=== PATIENT | male | born 1990 | race African-American/Black ===

== ENCOUNTER 2021-03-13 18:50 | Emergency (ER) | payer OTHER, SELFPAY ==
[2021-03-13 19:02] VITALS: BP 176/108; PULSE 116; RESP 20; TEMP 36.6; O2SAT 96
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
[2021-03-13 21:27] VITALS: BP 158/98; PULSE 108; RESP 14; O2SAT 98
== END 2021-03-13 21:29 | disposition home or self-care (01) ==
PROVIDERS: Emergency Provider Nurse Practitioner
DX: S05.01XA Injury of conjunctiva and corneal abrasion without foreign body, right eye, initial encounter (principal); X58.XXXA Exposure to other specified factors, initial encounter
CPT/HCPCS: 99282

== ENCOUNTER 2025-05-02 16:37 | Emergency (ER) | payer OTHER, SELFPAY ==
--- NOTE | ~2025-05-02 | US_ITS ---
BILATERAL LOWER EXTREMITY VENOUS ULTRASOUND Ordering provider: Krissy Steen PA-C History: . pain thighs, swelling L lower leg . Comparison: None. FINDINGS: RIGHT LOWER EXTREMITY VEINS: --COMMON FEMORAL: Patent and free of thrombus. Normal compressibility, phasic flow and augmentation. --PROXIMAL SUPERFICIAL FEMORAL: Patent and free of thrombus. Normal compressibility, phasic flow and augmentation. --DISTAL SUPERFICIAL FEMORAL: Patent and free of thrombus. Normal compressibility, phasic flow and au gmentation. --POPLITEAL: Patent and free of thrombus. Normal compressibility, phasic flow and augmentation. --POSTERIOR TIBIAL: Patent and free of thrombus. Normal compressibility, phasic flow and augmentation . LEFT LOWER EXTREMITY VEINS: --COMMON FEMORAL: Patent and free of thrombus. Normal compressibility, phasic flow and augmentation. --PROXIMAL SUPERFICIAL FEMORAL: Patent and free of thrombus. Normal compressibility, phasic flow and augmentation. --DISTAL SUPERFICIAL FEMORAL: Patent and free of thrombus. Normal compressibility, phasic flow and au gmentation. --POPLITEAL: Patent and free of thrombus. Normal compressibility, phasic flow and augmentation. --POSTERIOR TIBIAL: Patent and free of thrombus. Normal compressibility, phasic flow and augmentation . IMPRESSION: Negative bilateral lower extremity venous US. No deep vein thrombosis. Reviewed, dictated and finalized at location A.
[2025-05-02 16:38] VITALS: BP 147/93; PULSE 110; RESP 16; TEMP 36.8; O2SAT 98
--- OUTSIDE RECORDS SUMMARY | 2025-05-02 16:39 | XMS_ITS | Encounter Summary ---
Author Organization [facility] Healthcare Address [address] [place] [address] Care Team Providers Care Chief Administrative Officer Name Role Phone Miscellaneous, Not In File Unavailable Unava ilable Becka Dinh NP Primary Care Provider [phone] Encounter Details Date Type Department Care Team (Latest Contact Info) Description 03/31/2025 Results Follow-Up [facility] Primary Care at [address] [id number] Becka Dinh NP [address] [place] [address] [address] [place] [address] Albumin Creatinine Ratio, Urine, Lipid panel, Comprehensive metabolic panel, Additional followed-up results: 8 Social History Tobacco Use Types Packs/Day Years Used Date Smoking Tobacco: Former Cigarettes 3 13 S tarted: 2003 Passive Smoke Exposure: Past Smokeless Tobacco: Never AUDIT-C Answer Date Recorded Q1: How often do you have a drink containing alc ohol? 2-4 times a month 02/28/2025 Q2: How many drinks containi ng alcohol do you have on a typical day when you are drinking? 1 or 2 02/28/2025 Q3: How often do you have si x or more drinks on one occasion? Never 02/28/2025 PHQ-2 Answer Date Recorded PHQ-2 Total Score (If total score is 3 or more points, staff should administer the PHQ-9) 4 02/28/2025 PHQ-9 Answer Date Recorded PHQ-9 Total Score 18 02/28/2025 Sex and Gender Information Value Date Recorded Sex Assigned at Not on file Legal Sex Male 9:06 AM [employer] Gender Identity Not on file Sexual Orientation Not on file documented as of this encounter Miscellaneous Notes * Telephone Encounter - Lana Reese MA - 04/05/2025 1:32 PM CDT Pa has been started documented in this encounter Plan of Treatment Not on file documented as of this encounter Visit Diagnoses Not on filedocumented in this encounter Care Teams Chief Administrative Officer Relationship Specialty Start Date End Date Becka Dinh NP [address] [facility] [address] [place] [address] PCP - General Internal Medicine 02/28/25 Miscellaneous, Not In File 03/23/17 documented as of this encounter
--- OUTSIDE RECORDS SUMMARY | 2025-05-02 16:40 | XMS_ITS | Referral Summary ---
Author Organization [facility] Address [address] [place] [id number] Care Team Providers Care Coal Screener Name Role Phone Miscellaneous, Not In File Unavailable Unava ilable Becka Dinh NP Primary Care Provider [phone] Encounters Date Type Department Care Team Description 04/27/2025 Nurse Triage [facility] Medical [facility] Primary Care at [address] [phone] Bessie Guaman RN 04/07/2025 Telephone [facility] Medical [facility] Primary Care at [address] [phone] Becka Dinh NP Med Refill 04/05/2025 Telephone [facility] Medical [facility] Primary Care at [address] [phone] Becka Dinh NP PA for Ozempic 03/31/2025 Results Follow-Up [facility] Medical [facility] Primary Care at [address] [phone] Becka Dinh NP Albumin Creatinine Ratio, Urine, Lipid panel, Comprehensive metabolic panel, Additional followed-up results: 8 03/28/2025 10:36 AM CDT - 03/28/2025 11:59 PM CDT Hospital Encounter [facility] [address] [place] [address] Type 2 diabetes mellitus with hyperlipidemia (HCC); Mixed hyperlipidemia; Hypertension associated with diabetes (HCC); Vitamin D deficiency; Need for hepatitis C screening test; Need for hepatitis B screening test; History of anemia Discharge Disposition: Discharge to home or self care 03/28/2025 10:30 AM CDT Lab [facility] Outpatient Lab at [address] [phone] Morbid obesity with BMI of 45.0-49.9, adult (HCC) (Primary Dx); Mixed hyperlipidemia 03/28/2025 10:00 AM CDT Office Visit [facility] Primary Care at [address] [phone] Becka Dinh NP Morbid obesity with BMI of 40.0-44.9, adult (HCC) (Primary Dx); Type 2 diabetes mellitus with hyperlipidemia (HCC); Moderate episode of recurrent major depressive disorder (HCC); Hypertension associated with diabetes (HCC); Vitamin D deficiency; Mild intermittent asthma without complication 03/01/2025 Telephone [facility] Primary Care at [address] [phone] Becka Dinh NP Prior Auth (mounjaro) 02/28/2025 Telephone [facility] Primary Care at [address] [phone] Becka Dinh NP Med Refill 02/28/2025 2:00 PM CDT Office Visit [facility] Primary Care at [address] [phone] Becka Dinh NP Morbid obesity with BMI of 45.0-49.9, adult (HCC) (Primary Dx); Vitamin D deficiency; Mild intermittent asthma without complication; Mixed hyperlipidemia; Need for hepatitis C screening test; Need for hepatitis B screening test; History of anemia; Moderate episode of recurrent major depressive disorder (HCC); Hypertension associated with diabetes (HCC); Type 2 diabetes mellitus with hyperlipidemia (HCC); Chronic pain due to trauma from Last 3 Months Allergies No known active allergies Medications amLODIPine (NORVASC) 5 mg tabletIndications :Hypertension associated with diabetes (HCC) Take 1 tablet (5 mg total) by mouth daily 90 tablet 3 02/29/20 25 2025 Active ergocalciferol (VITAMIN D) 50,000 unit capsuleIndication s:Vitamin D deficiency Take 1 capsule (50,000 Units total) by mouth once a week 12 capsule 02/29/20 25 Active albuterol HFA (Ventolin HFA) 90 mcg/actuation inhalerIndication s:Mild intermittent asthma without complication Inhale 2 puffs every 8 (eight) hours as needed for wheezing 3 each 02/29/20 25 Active budesonide-formot Marc (SYMBICORT) 160-4.5 mcg/actuation inhalerIndication s:Maintenance Therapy for Asthma Inhale 2 puffs 2 (two) times a day Rinse mouth with water after use. Do not swallow. 1 each 02/29/20 25 Active blood glucose diagnostic (glucose blood) stripIndications: Type 2 diabetes mellitus with hyperlipidemia (HCC) Use to check blood sugar 3x per day 100 each 02/29/20 25 Active lancets miscIndications:T ype 2 diabetes mellitus with hyperlipidemia (HCC) Use to check blood sugar 3x per day 100 each 02/29/20 25 Active blood-glucose meter miscIndications:T ype 2 diabetes mellitus with hyperlipidemia (HCC) Use daily or as directed for monitoring of diabetes. 1 each 02/29/20 25 Active metFORMIN XR (GLUCOPHAGE XR) 500 mg 24 hr tabletIndications :Type 2 diabetes mellitus with hyperlipidemia (HCC) Take 2 tablets (1,000 mg total) by mouth 2 (two) times a day 180 tablet 03/28/20 25 Active sertraline (ZOLOFT) 50 mg tabletIndications :Moderate episode of recurrent major depressive disorder (HCC) Take 1 tablet (50 mg total) by mouth daily 90 tablet 03/28/202025 Active rosuvastatin (CRESTOR) 10 mg tabletIndications :Type 2 diabetes mellitus with hyperlipidemia (HCC) Take 1 tablet (10 mg total) by mouth daily 90 tablet 03/28/202025 Active semaglutide (OZEMPIC) 0.25 mg or 0.5 mg (2 mg/3 mL) pen injector injectionIndicati ons:Type 2 diabetes mellitus with hyperlipidemia (HCC) Inject 0.5 mg under the skin every 7 days 3 mL 1 04/07/20 25 Active semaglutide (OZEMPIC) 0.25 mg or 0.5 mg (2 mg/3 mL) pen injector injectionIndicati ons:Type 2 diabetes mellitus with hyperlipidemia (HCC) Inject 0.5 mg under the skin every 7 days 2 mL 1 03/28/20 25 2024 Discontinued Active Problems Problem Noted Date Diagnosed Date Chronic pain due to trauma 03/02/2025 Assessment & Plan (03/02/2025 7:51 AM CDT): Vitamin D deficiency 02/28/2025 Assessment & Plan (03/02/2025 7:51 AM CDT): We will check vitamin-D levels. Going ahead and starting patient on vitamin-D 50,000 given previous extremely low level and no follow up treatment. Orders: ergocalciferol (VITAMIN D) 50,000 unit capsule; Take 1 capsule (50,000 Units total) by mouth once a week Vitamin D 25 hydroxy; Future History of anemia 02/28/2025 Assessment & Plan (03/02/2025 7:51 AM CDT): History of anemia. CBC and iron profile pending. Orders: Iron profile w/ IBC; Future CBC with auto differential; Future Hypertension associated with diabetes 02/28/2025 Assessment & Plan (03/28/2025 12:29 PM CDT): Assessment & Plan (03/02/2025 7:51 AM CDT): Orders: amLODIPine (NORVASC) 5 mg tablet; Take 1 tablet (5 mg total) by mouth daily Albumin Creatinine Ratio, Urine; Future Hemoglobin A1c; Future Comprehensive metabolic panel; Future Mild intellectual disabilities 02/28/2025 Type 2 diabetes mellitus with hyperlipidemia 11/2024 Assessment & Plan (03/28/2025 12:29 PM CDT): Orders: metFORMIN XR (GLUCOPHAGE XR) 500 mg 24 hr tablet; Take 2 tablets (1,000 mg total) by mouth 2 (two) times a day rosuvastatin (CRESTOR) 10 mg tablet; Take 1 tablet (10 mg total) by mouth daily Albumin Creatinine Ratio, Urine; Future Assessment & Plan (03/02/2025 7:51 AM CDT): Orders: metFORMIN XR (GLUCOPHAGE XR) 500 mg 24 hr tablet; Take 2 tablets (1,000 mg total) by mouth daily with breakfast tirzepatide (Mounjaro) 2.5 mg/0.5 mL pen injector injection; Inject 0.5 mL (2.5 mg total) under the skin every 7 days Ambulatory referral to [facility] Education [facility] Nutrition Services; Future blood glucose diagnostic (glucose blood) strip; Use to check blood sugar 3x per day lancets misc; Use to check blood sugar 3x per day blood-glucose meter misc; Use daily or as directed for monitoring of diabetes. POCT hemoglobin A1c Morbid obesity with BMI of 45.0-49.9, adult 11/2024 Assessment & Plan (03/02/2025 7:51 AM CDT): Discussed the patient's BMI. The BMI is above average. BMI management plan is completed. BMI Follow-up includes: nutrition counseling, exercise counseling and education provided. Mixed hyperlipidemia 02/28/2025 Assessment & Plan (03/02/2025 7:51 AM CDT): History of elevated cholesterol levels. We will screen and likely start statin next visit. 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 Do not swallow. 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 Gender Identity Not on file Sexual Orientation Not on file Last Filed Vital Signs Vital Sign Reading Time Taken Comments Blood Pressure 118/84 03/28/2025 10:08 AM CDT Pulse 102 03/28/2025 10:08 AM CDT Temperature 36.8 C (98.2 F) 03/28/2025 10:08 AM CDT Respiratory Rate 16 03/28/2025 10:08 AM CDT Oxygen Saturation 97% 03/28/2025 10:08 AM CDT Inhaled Oxygen Concentration - - Weight 129.3 kg (285 lb) 03/28/2025 10:08 AM CDT Height 170.2 cm (5' 7) 03/28/2025 10:08 AM CDT Body Mass Index 44.64 03/28/2025 10:08 AM CDT Plan of Treatment Not on file Procedures Procedure Name Priority Date/Time Associated Diagnosis Comments EGFR Routine 03/28/2025 10:36 AM CDT Hypertension associated with diabetes (HCC) DIFFERENTIAL AUTO Routine 03/28/2025 10: 36 AM CDT History of anemia IRON PROFILE W/ IBC Routine 03/28/2025 1 0:36 AM CDT History of anemia CBC WITH AUTO DIFFERENTIAL Routine 03/28/2025 10:36 AM CDT History of anemia VITAMIN D 25 HYDROXY Routine 03/28/2025 10:36 AM CDT Vitamin D deficiency HEMOGLOBIN A1C Routine 03/28/2025 10:36 AM CDT Hypertension associated with diabetes (HCC) COMPREHENSIVE METABOLIC PANEL Routine 03/28/2025 10:36 AM CDT Hypertension associated with diabetes (HCC) LIPID PANEL Routine 03/28/2025 10:36 AM CDT Mixed hyperlipidemia ALBUMIN CREATININE RATIO, URINE Routine 03/28/2025 10:36 AM CDT Type 2 diabetes mellitus with hyperlipidemia (HCC) HEPATITIS B SURFACE ANTIGEN Routine 03/28/2025 10:36 AM CDT Need for hepatitis B screening test HEPATITIS C ANTIBODY Routine 03/28/2025 10:36 AM CDT Need for hepatitis C screening test POCT HEMOGLOBIN A1C Routine 02/28/2025 3 :13 PM CDT Type 2 diabetes mellitus with hyperlipidemia (HCC) from Last 3 Months Results * eGFR (03/28/2025 10:36 AM CDT) eGFR >90 >=60 mL/min/1. 73 m2 Comment: Interpretive Data Reference Interval Normal >/= 90 mL/min/1.73m2 Mildly decreased* 60 - 89 mL/min/1.73m2 Mildly to moderately decreased 45 - 59 mL/min/1.73m2 Moderately to severely decreased 30 - 44 mL/min/1.73m2 Severely decreased 15 - 29 mL/min/1.73m2 Kidney Failure < 15 mL/min/1.73m2 *Relative to young adult level Estimated glomerular filtration rate is determined by the 2020 CKD-EPI equation recommended by the National Kidney Foundation (A Unifying Approach to GFR Estimation: Recommendations of the NKF-ASK Task Force on Reassessing the Inclusion of Race in Diagnosing Kidney Disease, JASN 2020). The CKD-EPI equation should not be used for patients with unstable renal function and has not been validated in children and those over 70. Current interpretive data was last reviewed 2021. Blood 03/28/2025 10:3 6 AM CDT 03/28/2025 3:53 PM CDT Becka Dinh MACHINE ENGINEER LAB BLOOD ORDERABLES Final Re sult [facility] [id number] [address] Department of Laboratories [place] [phone] * Differential, auto (03/28/2025 10:36 AM CDT) Neutrophil abs 2.91 1.50 - 6.50 K/cumm Imm gran abs 0.01 0.00 - 0.10 K/cumm [facility] Lymphocyte abs 1.62 0.80 - 3.30 K/cumm [facility] Monocyte abs 0.39 0.20 - 0.80 K/cumm [facility] Eosinophil abs 0.19 0.00 - 0.50 K/cumm [facility] Basophil abs 0.02 0.00 - 0.10 K/cumm [facility] Neutrophil pct 56.6 % [facility]ISE Comment: Interpretive Data Percent cell count reference ranges are not reported, since discordance with absolute values may lead to misinterpretation of CBC data. Current Interpretive Data was last revised on 2018. Imm gran pct 0.2 % [facility]ISE Comment: Interpretive Data Percent cell count reference ranges are not reported, since discordance with absolute values may lead to misinterpretation of CBC data. Current Interpretive Data was last revised on 2018. Lymphocyte pct 31.5 % [facility] Comment: Interpretive Data Percent cell count reference ranges are not reported, since discordance with absolute values may lead to misinterpretation of CBC data. Current Interpretive Data was last revised on 2018. Monocyte pct 7.6 % [facility] Comment: Interpretive Data Percent cell count reference ranges are not reported, since discordance with absolute values may lead to misinterpretation of CBC data. Current Interpretive Data was last revised on 2018. Eosinophil pct 3.7 % [facility] Comment: Interpretive Data Percent cell count reference ranges are not reported, since discordance with absolute values may lead to misinterpretation of CBC data. Current Interpretive Data was last revised on 2018. Basophil pct 0.4 % [facility] Comment: Interpretive Data Percent cell count reference ranges are not reported, since discordance with absolute values may lead to misinterpretation of CBC data. Current Interpretive Data was last revised on 2018. Blood 03/28/2025 10:3 6 AM CDT 03/28/2025 3:46 PM CDT Becka Dinh MACHINE ENGINEER LAB BLOOD ORDERABLES Final Re sult Performing Organization Address [facility] Co de Phone Number JUSTINTRI BAÑUELOS [phone] [place] [address] * (ABNORMAL) Iron profile w/ IBC (03/28/2025 10:36 AM CDT) Iron 60 50 - 150 mcg/dl TIBC 248(L) 250 - 400 mcg/dL [facility] Transferrin saturation 24 20 - 50 % [facility] Blood 03/28/2025 10:3 6 AM CDT 03/28/2025 3:46 PM CDT Becka Dinh MACHINE ENGINEER LAB BLOOD ORDERABLES Final Re sult Performing Organization Address City/[facility]/ZIP Co de Phone Number MARQUISE [phone] [address] [place] [address] * (ABNORMAL) CBC with auto differential (03/28/2025 10:36 AM CDT) [facility] WBC 5.14 3.80 - 9.90 K/cumm Hgb 14.0 13.0 - 17.5 g/dL [facility] Hct 46.2 38.9 - 50.3 % [facility] Plt 304 150 - 400 K/cumm [facility] MPV 9.6 9.1 - 12.3 fL [facility] RBC 6.11(H) 4.30 - 5.80 M/cumm [facility] MCV 75.6(L) 81.3 - 96.4 fL [facility] MCH 22.9(L) 27.1 - 33.3 pg [facility] MCHC 30.3(L) 32.3 - 35.7 g/dL [facility] RDW CV 13.9 11.1 - 14.9 % [facility] RDW SD 37.1 35.7 - 48.1 fL [facility] NRBC abs 0.00 0.00 - 0.01 K/cumm [facility] Blood 03/28/2025 10:3 6 AM CDT 03/28/2025 3:46 PM CDT Becka Dinh MACHINE ENGINEER LAB BLOOD ORDERABLES Final Re sult [facility] [id number] [address] Department [place] [address] * Hepatitis C antibody Blood (03/28/2025 10:36 AM CDT) [facility] Hep C Ab Nonreactive Nonreactive Comment: Interpretive Data Nonreactive: Antibodies to HCV not detected. Does NOT exclude the possibility of recent exposure to HCV. Equivocal: Equivocal for HCV antibodies. Supplemental molecular testing will be automatically performed to determine infection status in accordance with current CDC screening recommendations. Reactive: Positive for HCV antibodies. This may represent current or past HCV infection. Supplemental molecular testing will be automatically performed to determine current infection status in accordance with current CDC screening recommendations. Interpretive data was last revised on 2020. Blood 03/28/2025 10:3 6 AM CDT 03/28/2025 3:46 PM CDT Becka Dinh NP LAB MICROBIOLOGY - GENERAL OR DERABLES Final Result Performing Organization Address [facility] Co de Phone Number MARQUISE BAÑUELOS [phone] [address] [facility] [place] [address] * Albumin Creatinine Ratio, Urine (03/28/2025 10:36 AM CDT) Pathologist [facility] Albumin Ur 15.3 mg/L Comment: Interpretive Data No reference range established. Current interpretive data was last revised 2019. Creatinine Ur 175.9 mg/dL [facility] Comment: Interpretive Data No reference range established. Current interpretive data was last revised 2019. Albumin Creatinine Ratio, Ur 9 1 - 29 mg/g [facility] Urine 03/28/2025 10:3 6 AM CDT 03/28/2025 3:46 PM CDT Becka Dinh NP LAB URINE ORDERABLES Final Re sult Performing Organization Address [facility] Co de Phone Number MARQUISE EDDA [phone] [address] [facility] [place] [address] * (ABNORMAL) Vitamin D 25 hydroxy (03/28/2025 10:36 AM CDT) Pathologist [facility] Vitamin D 25-OH 29(L) 30 - 80 ng/mL Blood 03/28/2025 10:3 6 AM CDT 03/28/2025 3:46 PM CDT Becka Dinh NP LAB BLOOD ORDERABLES Final Re sult Performing Organization Address [facility] Co de Phone Number JUSTINTRI BAÑUELOS [phone] [address] [facility] [place] [address] * Hepatitis B Surface Antigen Blood (03/28/2025 10:36 AM CDT) Pathologist [facility] HepBsAg Nonreactive Nonreactive Blood 03/28/2025 10:3 6 AM CDT 03/28/2025 3:46 PM CDT Becka Dinh NP LAB MICROBIOLOGY - GENERAL OR DERABLES Final Result Performing Organization Address [facility] de Phone Number MARQUISE BAÑUELOS [phone] [address] [facility] [place] [address] * (ABNORMAL) Hemoglobin A1c (03/28/2025 10:36 AM CDT) Hgb A1C 10.6(H) 4.0 - 5.6 % Estimated Average Glucose 258 mg/dL [facility] BAÑUELOS Comment: The ADA recommends reporting an estimated Average Glucose (eAG) with all Hemoglobin A1c results using the equation derived from a study of 507 normal and diabetic adults. Minority populations were underrepresented and children were not included. (Diabetes Care 31:3980-5830, 2008). The eAG is not equivalent to a fasting glucose. Blood 03/28/2025 10:3 6 AM CDT 03/28/2025 3:46 PM CDT Becka Dinh NP LAB BLOOD ORDERABLES Final Re sult Performing Organization Address [facility] de Phone Number MARQUISE BAÑUELOS [phone] [address] [facility] [place] [address] * (ABNORMAL) Lipid panel (03/28/2025 10:36 AM CDT) Cholesterol 229(H) 30 - 199 mg/dL Comment: Interpretive Data Ages < or = 19 years Acceptable: <170 mg/dL Borderline high: 170-199 mg/dL High: >or= 200 mg/dL Ages > or = 20 years Desirable: <200 mg/dL Borderline high: 200-239 mg/dL High: >or= 240 mg/dL Literature References: 1. Expert Panel on Integrated Guidelines for Cardiovascular Health and Risk Reduction in Children and Adolescents. Pediatrics 2011;128:S213 2. NCEP Expert Panel. Circulation 2004;110:227 Current Interpretive Data was last revised on 2018. Triglycerides 60 <=149 mg/dL [facility]QU[facility] BAÑUELOS Comment: Interpretive Data Ages < or = 9 years Acceptable: <75 mg/dL Borderline high: 75-99 mg/dL High: >or= 100 mg/dL Ages 10 to 20 years Acceptable: <90 mg/dL Borderline high: 90-129 mg/dL High: >or= 130 mg/dL Ages > or = 20 years Desirable: <150 mg/dL Borderline high: 150-199 mg/dL High: 200-499 mg/dL Very high: >or= 499 mg/dL Literature References: 1. Expert Panel on Integrated Guidelines for Cardiovascular Health and Risk Reduction in Children and Adolescents. Pediatrics 2011;128:S213 2. NCEP Expert Panel. Circulation 2004;110:227 Current Interpretive Data was last revised on 2018. HDL 37(L) >=40 mg/dL [facility]QU[facility] BAÑUELOS Comment: Interpretive Data Ages < or = 19 years Acceptable: >45 mg/dL Borderline low: 40-45 mg/dL Low: <40 mg/dL Ages > or = 20 years Desirable: >or= 60 mg/dL Low: <40 mg/dL Literature References: 1. Expert Panel on Integrated Guidelines for Cardiovascular Health and Risk Reduction in Children and Adolescents. Pediatrics 2011;128:S213 2. NCEP Expert Panel. Circulation 2004;110:227 Current Interpretive Data was last revised on 2018. LDL, calculated 182(H) <=129 mg/dL [facility] BAÑUELOS Comment: Interpretive Data Ages < or = 19 years Acceptable: <110 mg/dL Borderline high: 110-129 mg/dL High: >or= 130 mg/dL Ages > or = 20 years Optimal: <100 mg/dL Near optimal: 100-129 mg/dL Borderline high: 130-159 mg/dL High: >160 mg/dL Calculated using the Minor LDL-C estimating equation. This equation was implemented on 2024. Prior to this date LDL-C was estimated using the Friedewald equation. Literature References: 1. Expert Panel on Integrated Guidelines for Cardiovascular Health and Risk Reduction in Children and Adolescents. Pediatrics 2011;128:S213 2. NCEP Expert Panel. Circulation 2004;110:227 3. Minor Hardy al. SITA Cardiol. 2019March 30;5(5):540-548. doi: 10.1001/[email or web address] Current Interpretive Data was last revised on 2024. Non-HDL Cholesterol 192 mg/dL [facility] Comment: Interpretive Data Ages < or = 19 years Acceptable: <120 mg/dL Borderline high: 120-144 mg/dL High: >145 mg/dL Ages > or = 20 years When triglycerides are >200 mg/dL, Non-HDL cholesterol is a secondary target of therapy with treatment goals that are 30 mg/dL greater than the LDL cholesterol target. Literature References: 1. Expert Panel on Integrated Guidelines for Cardiovascular Health and Risk Reduction in Children and Adolescents. Pediatrics 2011;128:S213 2. NCEP Expert Panel. Circulation 2004;110:227 Current Interpretive Data was last revised on 2018. Chol/HDL ratio 6 [facility] Blood 03/28/2025 10:3 6 AM CDT 03/28/2025 3:46 PM CDT Becka Dinh NP LAB BLOOD ORDERABLES Final Re sult [facility] [id number] [address] Department [place] [address] * (ABNORMAL) Comprehensive metabolic panel (03/28/2025 10:36 AM CDT) Sodium 138 135 - 145 mmol/L Potassium, pl 4.6 3.3 - 4.9 mmol/L [facility] Chloride 102 97 - 110 mmol/L [facility] CO2 26 22 - 32 mmol/L [facility] Anion gap 10 2 - 15 mmol/L [facility] BUN 18 6 - 25 mg/dL [facility] Creatinine 0.77(L) 0.80 - 1.30 mg/dL [facility] Glucose 157 70 - 199 mg/dL [facility] Comment: Interpretive Data Fasting glucose >/= 126 mg/dl is diagnostic for diabetes. Fasting is defined as no caloric intake for at least 8 hours. Fasting glucose between 100 mg/dl to 125 mg/dl is diagnostic of prediabetes. In a patient with classic symptoms of hyperglycemia or hyperglycemic crisis, a random glucose >/= 200 mg/dl is diagnostic for diabetes. In the absence of unequivocal hyperglycemia, results should be confirmed by repeat testing. The classification and Diagnosis of Diabetes Diabetes Care 2021; 46: S19-S40. Current interpretive data was last revised 2022. Calcium 9.8 8.5 - 10.3 mg/dL [facility] Bilirubin, total 0.5 0.1 - 1.2 mg/dL [facility] Protein, pl 7.7 6.5 - 8.5 g/dL [facility] Albumin 4.3 3.5 - 5.0 g/dL [facility] Alk phos 65 40 - 130 Units/L [facility] ALT 28 7 - 55 Units/L [facility] AST 34 10 - 50 Units/L [facility] Blood 03/28/2025 10:3 6 AM CDT 03/28/2025 3:46 PM CDT Becka Dinh MACHINE ENGINEER LAB BLOOD ORDERABLES Final Re sult [facility] [id number] [address] [place] [address] * (ABNORMAL) POCT hemoglobin A1c (02/28/2025 3:13 PM CDT) Hemoglobin A1C, POC 10.7 4.0 - 5.6 % Blood 02/28/2025 3:13 PM CDT Becka Dinh NP POINT OF CARE TEST ORDERABLES Final Result from Last 3 Months Insurance * Guarantor: [employer] Account Type Relation to Patient Date of Phone Billing Address Personal/Family Self 1990 [address] [place] [address] [facility] CHOICE [facility]US [facility] Care Teams Coal Screener Relationship Specialty Start Date End Date Becka Dinh NP [address] [address] PCP - General Internal Medicine 02/28/25 Miscellaneous, Not In File 03/23/17
--- OUTSIDE RECORDS SUMMARY | 2025-05-02 16:40 | XMS_ITS | CONTINUITY OF CARE DOCUMENT ---
Author Name wendy nguyen Address Unknown Organization [facility] Address [address] [address] [facility] [address] [place] [address] Phone [phone] Care Team Providers Care Sample Preparation Supervisor Name Role Phone Cesario RANDOLPH, Meme Unavailable [phone] ALBERTO POWELL MD Unavailable SHERRY RANDOLPH, ALBERTO Unavailable PROBLEMS Condition Status Date Provider Notes Asthma, unspecified active ALBERTO POWELL MD Tobacco use, quit active ALBERTO POWELL MD Family history of other card iovascular diseases active ALBERTO POWELL MD Unspecified intellectual disabilities active 0 ALBERTO POWELL MD ENCOUNTERS Date Type Provider Location Encounter Diag nosis - In-person encounter Office Visit ALBERTO POWELL MD [place] [facility] - In-person encounter Office Visit Gisela Vázquez [place] [facility] - In-person encounter Office Visit ALBERTO POWELL MD [place] [facility] Asthma, unspecifiedTobacco use, quitFamily history of other cardiovascular diseasesUnspecified intellectual disabilities ALLERGIES No Known Drug Allergies HISTORY OF MEDICATION USE Medication Status Instructions Dates Provider Indications Com ments ASPIRIN 81 MG ORAL TABLET active ONE TAB. DAILY ALBERTO POWELL MD VENTOLIN HFA 108 (90 Base) MCG/ACT INHALATION AEROSOL SOLUTION active TAKE NEEDED ALBERTO POWELL MD INSURANCE PROVIDERS Payer name Policy type / Coverage type [employer] red alliance party ID [place] MEDICAID (2) Medicaid [id number]
--- OUTSIDE RECORDS SUMMARY | 2025-05-02 16:40 | XMS_ITS | Clinical Summary ---
Author Organization [facility] Address [address] [place] [address] Care Team Providers Care Medical Dermatologist Name Role Phone Miscellaneous, Not In File Unavailable Melindava Becka De León NP Primary Care Provider [phone] Allergies No known active allergies Medications amLODIPine (NORVASC) 5 mg tabletIndications :Hypertension associated with diabetes (HCC) Take 1 tablet (5 mg total) by mouth daily 90 tablet 02/29/20 25 2025 Active ergocalciferol (VITAMIN D) [...] 2 (two) times a day 180 tablet 3 03/28/20 25 Active sertraline (ZOLOFT) 50 mg tabletIndications :Moderate episode of recurrent major depressive disorder (HCC) Take 1 tablet (50 mg total) by mouth daily 90 tablet 3 03/28/20 25 2025 Active rosuvastatin (CRESTOR) 10 mg tabletIndications :Type 2 diabetes mellitus with hyperlipidemia (HCC) Take 1 tablet (10 mg total) by mouth daily 90 tablet 3 03/28/20 25 2025 Active semaglutide (OZEMPIC) 0.25 mg or 0.5 [...] Resolved Date Unspecified intellectual disabilities 02/06/2015 02/28/2025 Encounters Date Type Department Care Team Description 04/27/2025 Nurse Triage [facility] Primary Care at [address] [phone] Bessie Guaman RN 04/07/2025 Telephone [facility] Primary Care at [address] [phone] Becka Dinh NP Med Refill 04/05/2025 Telephone [facility] Primary Care at [address] [phone] Becka Dinh NP PA for Ozempic 03/31/2025 Results Follow-Up [facility] Primary Care at [address] [phone] Becka Dinh NP Albumin Creatinine Ratio, Urine, Lipid panel, Comprehensive metabolic panel, Additional followed-up results: 8 03/28/2025 10:36 AM CDT - 03/28/2025 11:59 PM CDT Hospital Encounter [address] [address] Type 2 diabetes mellitus with hyperlipidemia (HCC); Mixed hyperlipidemia; Hypertension associated with diabetes (HCC); Vitamin D deficiency; Need for hepatitis C screening test; Need for hepatitis B screening test; History of anemia Discharge Disposition: Discharge to home or self care 03/28/2025 10:30 AM CDT Lab [facility] Outpatient Lab at [address] [phone] Morbid obesity with BMI of 45.0-49.9, adult (HCC) (Primary Dx); Mixed hyperlipidemia 03/28/2025 10:00 AM CDT Office Visit [facility] Primary Care at [address] [phone] Becka Dinh NP Morbid obesity with BMI of 40.0-44.9, adult (HCC) (Primary Dx); Type 2 diabetes mellitus with hyperlipidemia (HCC); Moderate episode of recurrent major depressive disorder (HCC); Hypertension associated with diabetes (HCC); Vitamin D deficiency; Mild intermittent asthma without complication 03/01/2025 Telephone [facility] Primary Care at [address] [phone] Becka Dinh NP Prior Auth (mounjaro) 02/28/2025 2:00 PM CDT Office Visit [facility] Primary Care at [address] [phone] Becka Dinh NP Morbid obesity [...] hyperlipidemia (HCC); Chronic pain due to trauma 02/28/2025 Telephone [facility] Primary Care at [address] [phone] Becka Dinh NP Med Refill from Last 3 Months Immunizations Immunization Administration Dates Next Due Influenza, Quadrivalent, Split, Intramuscular ,09/27/2015 Pneumococcal Conjugate Pcv20 09/14/2022 Tdap 09/14/2022 Surgical History Surgery Date Site/Laterality Comments OTHER SURGICAL HISTORY right femur fracture: ORIF OTHER SURGICAL HISTORY right humeral fracture: ORIF Medical History Medical History Date Comments Hx Other Medical right femur fra cture; Comments: MICHAEL 03/23/2017 - Hx Other Medical right humeral f racture; Comments: MICHAEL 03/23/2017 - Hypertension Asthma History of chicken pox Eczema Family History Medical History Relation Name Comments Hypertension Father Schizophrenia Father Asthma Mother Bipolar disorder Mother Depression Mother Diabetes Mother Heart disease Mother Sickle cell anemia Mother Heart disease Sister 1 Asthma Sister 2 Relation Name Status Comments Father Mother Sister 1 Alive Sister 2 Alive Social History Tobacco Use Types Packs/Day Years [...] on file 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 Gender Identity Not on file Sexual Orientation Not on file Obstetrics History Last Filed Vital Signs Vital Sign Reading [...] 03/28/2025 10:08 AM CDT Plan of Treatment Health Maintenance Due Date Last Done Comments Dilated Eye Exam 1990 Foot Exam 1990 Hepatitis B Screening 2008 Regular Well Visit/Exam 18-64 2008 Influenza Vaccine (Season Ended) 2025 12/31/2016, 09/27/2015 Hemoglobin A1C 09/27/2025 03/28/2025, 02/28/2025 Covid-19 Vaccine (2 - 2023-2 5 season) 2026 04/27/2021 Postponed from 07/31 (Patient declined, but will receive in the future) Depression Screening 02/28/2026 02/28/2025, 02/28/2025 Albumin Creatinine Ratio, Urine 03/28/2026 03/28/2025 Lipid Panel 03/28/2026 03/28/2025, 01/22/2017 eGFR 03/28/2026 03/28/2025 DTaP/Tdap/Td Vaccine (2 - Td or Tdap) 09/14/2032 09/14/2022 Pneumococcal vaccine <65 Completed 09/14/2022 Hepatitis C Screening Completed 03/28/2025 HPV Vaccines Aged Out No longer eligi ble based on patient's age to complete this topic Procedures Procedure Name Priority Date/Time Associated Diagnosis [...] 6 AM CDT 03/28/2025 3:53 PM CDT us Becka Dinh NP LAB BLOOD ORDERABLES Final Re sult [facility] [address] Department [place] [address] * Differential, auto (03/28/2025 10:36 AM CDT) Neutrophil abs 2.91 1.50 - 6.50 K/cumm Imm gran abs 0.01 0.00 - 0.10 K/cumm [facility] Lymphocyte abs 1.62 0.80 - 3.30 K/cumm [facility] Monocyte abs 0.39 0.20 - 0.80 K/cumm [facility] Eosinophil abs 0.19 0.00 - 0.50 K/cumm [facility] Basophil abs 0.02 0.00 - 0.10 K/cumm [facility] Neutrophil pct 56.6 % [facility] Comment: Interpretive Data Percent cell count reference ranges are not reported, since discordance with absolute values may lead to misinterpretation of CBC data. Current Interpretive Data was last revised on 2018. Imm gran pct 0.2 % [facility] Comment: Interpretive Data Percent cell count reference ranges are not reported, since discordance with absolute values may lead to misinterpretation of CBC data. Current Interpretive Data was last revised on 2018. Lymphocyte pct 31.5 % [facility] Comment: Interpretive Data Percent cell count reference ranges are not reported, since discordance with absolute values may lead to misinterpretation of CBC data. Current Interpretive Data was last revised on 2018. Monocyte pct 7.6 % [facility] Comment: Interpretive Data Percent cell count reference ranges are not reported, since discordance with absolute values may lead to misinterpretation of CBC data. Current Interpretive Data was last revised on 2018. Eosinophil pct 3.7 % [facility] Comment: Interpretive Data Percent cell count reference ranges are not reported, since discordance with absolute values may lead to misinterpretation of CBC data. Current Interpretive Data was last revised on 2018. Basophil pct 0.4 % [facility] Comment: Interpretive Data Percent cell count reference ranges are not reported, since discordance with absolute values may lead to misinterpretation of CBC data. Current Interpretive Data was last revised on 2018. Blood 03/28/2025 10:3 6 AM CDT 03/28/2025 3:46 PM CDT Becka Dinh LAB BLOOD ORDERABLES Final Re sult Performing Organization Address [facility] de Phone Number [facility] [address] Department of [employer] [place] [address] * (ABNORMAL) Iron profile w/ IBC (03/28/2025 10:36 AM CDT) Iron 60 50 - 150 mcg/dl TIBC 248(L) 250 - 400 mcg/dL [facility] Transferrin saturation 24 20 - 50 % [facility] Blood 03/28/2025 10:3 6 AM CDT 03/28/2025 3:46 PM CDT Becka Dinh MARKETING AMBASSADOR LAB BLOOD ORDERABLES Final Re sult Performing Organization Address [facility] Co de Phone Number [facility] [address] Department of [employer] [place] [address] * (ABNORMAL) CBC with auto differential (03/28/2025 10:36 AM CDT) WBC 5.14 3.80 - 9.90 K/cumm Hgb 14.0 13.0 - 17.5 g/dL [facility] Hct 46.2 38.9 - 50.3 % [facility] Plt 304 150 - 400 K/cumm [facility] MPV 9.6 9.1 - 12.3 fL [facility] RBC 6.11(H) 4.30 - 5.80 M/cumm [facility] MCV 75.6(L) 81.3 - 96.4 fL [facility] MCH 22.9(L) 27.1 - 33.3 pg [facility] MCHC 30.3(L) 32.3 - 35.7 g/dL [facility] RDW CV 13.9 11.1 - 14.9 % [facility] RDW SD 37.1 35.7 - 48.1 fL [facility] NRBC abs 0.00 0.00 - 0.01 K/cumm [facility] Blood 03/28/2025 10:3 6 AM CDT 03/28/2025 3:46 PM CDT Becka Fabrizio MARKETING AMBASSADOR LAB BLOOD ORDERABLES Final Re sult Performing Organization Address [facility] de Phone Number [facility]EL[facility] [address] [place] [address] * Hepatitis C antibody Blood (03/28/2025 10:36 AM CDT) Hep C Ab Nonreactive Nonreactive Comment: Interpretive [...] OR DERABLES Final Result Performing Organization Address [facility]/ZIP Co de Phone Number [facility] BA[facility]UELOS [address] Department [employer] [place], [place] [id number] * Albumin Creatinine Ratio, Urine (03/28/2025 10:36 AM CDT) Pathologist [facility] Albumin Ur 15.3 mg/L Comment: Interpretive Data No reference range established. Current interpretive data was last revised 2019. Creatinine Ur 175.9 mg/dL [facility] Comment: Interpretive Data No reference range established. Current interpretive data was last revised 2019. Albumin Creatinine Ratio, Ur 9 1 - 29 mg/g [facility] Urine 03/28/2025 10:3 6 AM CDT 03/28/2025 3:46 PM CDT Becka Dinh MARKETING AMBASSADOR LAB URINE ORDERABLES Final Re sult Performing Organization Address [facility] Co de Phone Number [facility] [address] [facility] [employer] [place] [address] * (ABNORMAL) Vitamin D 25 hydroxy (03/28/2025 10:36 AM CDT) Pathologist [facility] Vitamin D 25-OH 29(L) 30 - 80 ng/mL Blood 03/28/2025 10:3 6 AM CDT 03/28/2025 3:46 PM CDT Becka Dinh NP LAB BLOOD ORDERABLES Final Re sult Performing Organization Address [facility] Co de Phone Number MARQU[facility] [address] [facility] [employer] [place] [address] * Hepatitis B Surface Antigen Blood (03/28/2025 10:36 AM CDT) Pathologist [facility] HepBsAg Nonreactive Nonreactive Blood 03/28/2025 10:3 6 AM CDT 03/28/2025 3:46 PM CDT Becka Dinh NP LAB MICROBIOLOGY - GENERAL OR DERABLES Final Result Performing Organization Address [facility] Co de Phone Number MARQUISE [address] [facility] [employer] [place] [address] * (ABNORMAL) Hemoglobin A1c (03/28/2025 10:36 AM CDT) Hgb A1C 10.6(H) 4.0 - 5.6 % Estimated Average Glucose 258 mg/dL [facility] Comment: The ADA recommends reporting an estimated Average Glucose (eAG) with all Hemoglobin A1c results using the equation derived from a study of 507 normal and diabetic adults. Minority populations were underrepresented and children were not included. (Diabetes Care 31:2989-8079, 2008). The eAG is not equivalent to a fasting glucose. Blood 03/28/2025 10:3 6 AM CDT 03/28/2025 3:46 PM CDT Becka Dinh NP LAB BLOOD ORDERABLES Final Re sult [facility]UEL[facility] [address] Department of Laboratories [place] [id number] * (ABNORMAL) Lipid panel (03/28/2025 10:36 AM [...] NCEP Expert Panel. Circulation 2004;110:227 3. Minor Lee et al. SITA Cardiol. 2020 March 30;5(5):540-548. doi: 10.1001/jamacardio.2020.0013 Current Interpretive Data was last revised on 2024. Non-HDL Cholesterol 192 mg/dL [facility] Comment: Interpretive Data Ages < or = [...] last revised on 2018. Chol/HDL ratio 6 [facility] Blood 03/28/2025 10:3 6 AM CDT 03/28/2025 3:46 PM CDT Becka Dinh NP LAB BLOOD ORDERABLES Final Re sult [facility] [address] Department [place] [address] * (ABNORMAL) Comprehensive metabolic panel (03/28/2025 10:36 AM CDT) Sodium 138 135 - 145 mmol/L Potassium, pl 4.6 3.3 - 4.9 mmol/L [facility] Chloride 102 97 - 110 mmol/L [facility] CO2 26 22 - 32 mmol/L [facility] Anion gap 10 2 - 15 mmol/L [facility] BUN 18 6 - 25 mg/dL [facility] Creatinine 0.77(L) 0.80 - 1.30 mg/dL [facility] Glucose 157 70 - 199 mg/dL [facility] Comment: Interpretive Data Fasting glucose >/= 126 [...] 6 AM CDT 03/28/2025 3:46 PM CDT us Becka Dinh MARKETING AMBASSADOR LAB BLOOD ORDERABLES Final Re sult [facility] [address] Department [place] [address] * (ABNORMAL) POCT hemoglobin A1c (02/28/2025 3:13 PM CDT) Hemoglobin A1C, POC 10.7 4.0 - 5.6 % Blood 02/28/2025 3:13 PM CDT Becka Dinh MARKETING AMBASSADOR POINT OF CARE TEST ORDERABLES Final Result from Last 3 Months Insurance * Guarantor: [employer] Account Type Relation to Patient Date of Phone Billing Address Personal/Family Self 1990 [address] [place] [address] [facility] CHOICE PLUS [address] Care Teams Medical Dermatologist Relationship Specialty Start Date End Date Becka Dinh NP [address] [facility] [address] [place] [address] PCP - General Internal Medicine 02/28/25 Miscellaneous, Not In File 03/23/17
--- NOTE | 2025-05-02 17:17 | ED_ITS ---
HPI - Extremity Problem General Chief complaint: Extremity Problem,Nontraumatic Stated complaint: L THIGH PAIN X1D Time Seen by Provider: 05/02/25 16:55 Source: patient Mode of arrival: ambulatory Limitations: no limitations History of Present Illness HPI Narrative: Patient is a 34-year-old male who presents the ED with report of side pain. Patient reports yesterday he strained his right thigh getting something out of the freezer at work. He states he had to call out of work. He states he has been compensating with his L leg and is now having pain in his left side. Denies current pain in his right leg. He did take Tylenol for his pain earlier today with improvement. He also noticed some swelling throughout his left lower leg today. Denies numbness. Denies history of blood clots. Denies chest pain or shortness of breath. Related Data Allergies Allergy/AdvReac Type Severity Reaction Status Date / Time No Known Allergies Allergy Verified 05/02/25 16:38 Review of Systems Review of Systems: All systems reviewed & are unremarkable except as noted in HPI. All systems reviewed & are unremarkable except as noted in HPI and below [facility] Past Medical History Medical History No significant past medical history Surgical History Surgical History No significant past surgical history Family History Family History Other No significant family history Social History Social History Smoking status: Never smoker Alcohol intake: current Alcohol use details: Occasional Substance use: never Exam Narrative: GENERAL: Anxious appearing, morbidly obese with BMI of 43.5, non-toxic, in no acute distress. HEAD: Normocephalic, atraumatic. RESPIRATORY: Airway patent, respirations nonlabored. CARDIOVASCULAR: Regular rate and rhythm. Pedal pulses intact. MUSCULOSKELETAL: Moves all extremities. No gross deformities. Mild tenderness to palpation over left anterior medial thigh. No calf tenderness. Minimal swelling of left calf compared to right. No pitting edema. Sensation intact throughout extremities. SKIN: Warm, dry, normal color. NEURO: A&O X3. Speech clear. Steady gait. No ataxic movements. PSYCHIATRIC: Appropriate mood and affect. Normal interaction. Course Vital Signs Vital signs: Vital Signs Temperature 98.2 F 05/02/25 16:38 Pulse Rate 110 H 05/02/25 16:38 Respiratory Rate 16 05/02/25 16:38 Blood Pressure 147/93 H 05/02/25 16:38 Pulse Oximetry 98 05/02/25 16:38 Oxygen Delivery Room Air 05/02/25 16:38 Temperature 98.2 F 05/02/25 16:38 Pulse Rate 110 H 05/02/25 16:38 Respiratory Rate 16 05/02/25 16:38 Blood Pressure 147/93 H 05/02/25 16:38 Pulse Oximetry 98 05/02/25 16:38 Oxygen Delivery Room Air 05/02/25 16:38 MDM - Extremity (Nontraumatic) MDM Narrative Medical decision making narrative: Patient?s injury is consistent with musculoskeletal etiology. No signs of neurologic or vascular compromise on physical examination. Compartments are soft without signs of compartment syndrome. Patient denies any direct injury to legs. Has been ambulatory. Very low suspicion for acute fracture. Given swelling and pain, venous Doppler ultrasound of extremities were obtained. This was negative for DVT. Pain is consistent with muscle strain/overuse injury. Patient is felt to be stable for discharge home and further outpatient management and treatment. Advised to continue Tylenol/ibuprofen as needed for pain. Given return precautions. Discharged in stable condition. Medical Records Attestation: I reviewed the patient's medical records. Imaging Data Attestation: I personally reviewed and interpreted this imaging study as follows: Radiologist's impression: ITS Impressions Venous Doppler Study 05/02/25 17:40 IMPRESSION: Negative bilateral lower extremity venous US. No deep vein thrombosis. Discharge Plan Discharge Clinical Impression: Strain of left hip and thigh Patient Disposition: Home Condition: Stable Instructions: Antibiotic Form, Leg Sprain (ED), P.R.I.C.E. Treatment (ED) Additional Instructions: Your imaging here did not show any evidence of blood clots. You likely strained your leg/thigh muscles. Continue Tylenol and ibuprofen as needed for pain. Follow-up with your primary care doctor for further evaluation. Return to the ED for new or worsening concerns. Patient Language: Panamanian Prescriptions: No Action erythromycin 5 mg/gram (0.5 %) ointment 0.5 inch RIGHT EYE QID 5 Days Qty: 1 0RF Follow-up/Referrals: Fabrizio,Becka Saxena APRN [Primary Care Provider] - Time of Disposition: 17:51
[2025-05-02] MEDS: CYCLOBENZAPRINE HCL 5 MG TABLET PO (17:40)
[2025-05-02] MEDS: ACETAMINOPHEN 500 MG TABLET 1000 MG PO (17:41)
--- OUTSIDE RECORDS SUMMARY | 2025-05-02 17:42 | XMS_ITS | CONTINUITY OF CARE DOCUMENT ---
Author Name wendy nguyen Address Unknown Organization [facility] Address [address] [facility] [address] [place] [address] Phone [phone] Care Team Providers Care Diploma Dental Assistant Name Role Phone Cesario RANDOLPH, Meme Unavailable ALBERTO POWELL MD Unavailable [phone] SHERRY RANDOLPH, ALBERTO Unavailable PROBLEMS Condition Status Date Provider Notes Asthma, unspecified active ALBERTO POWELL MD Tobacco use, quit active ALBERTO POWELL MD Family history of other card iovascular diseases active ALBERTO POWELL MD Unspecified intellectual disabilities active 0 ALBERTO POWELL MD ENCOUNTERS Date Type Provider Location Encounter Diag nosis - In-person encounter Office Visit ALBERTO POWELL MD [facility] - In-person encounter Office Visit Gisela Vázquez [facility] - In-person encounter Office Visit ALBERTO POWELL MD [facility] Asthma, unspecifiedTobacco use, quitFamily history of [...] Payer name Policy type / Coverage type [employer] red alliance party ID [place] MEDICAID (2) Medicaid [id number]
--- OUTSIDE RECORDS SUMMARY | 2025-05-02 17:42 | XMS_ITS | Encounter Summary ---
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
--- OUTSIDE RECORDS SUMMARY | 2025-05-02 17:42 | XMS_ITS | Clinical Summary ---
Author Organization [facility] Address [address] [place] [address] Care Team Providers Care Agricultural Economics Professor Name Role Phone Miscellaneous, Not In File Unavailable Melindava Becka De León NP Primary Care Provider [phone] Allergies No known active allergies Medications amLODIPine [...] Department Care Team Description 04/27/[address] [facility] Medical [facility] Primary Care at [address] [phone] Bessie Guaman RN 04/07/2025 Telephone [facility] Primary Care at [address] [phone] Becka Dinh NP Med Refill 04/05/2025 Telephone [facility] Primary Care at [address] [phone] Becka Dinh NP PA for Ozempic 03/31/2025 Results Follow-Up [facility] Primary Care at [address] [phone] Becka Dinh NP Albumin Creatinine Ratio, Urine, Lipid panel, Comprehensive metabolic panel, Additional followed-up results: 8 03/28/2025 10:36 AM CDT - 03/28/2025 11:59 PM CDT Hospital Encounter [address] [address] Type 2 diabetes mellitus with hyperlipidemia (HCC); Mixed hyperlipidemia; Hypertension associated with diabetes (HCC); Vitamin D deficiency; Need for hepatitis C screening test; Need for hepatitis B screening test; History of anemia Discharge Disposition: Discharge to home or self care 03/28/2025 10:30 AM CDT Lab [facility] Outpatient Lab at [address] [phone] Morbid obesity with BMI of 45.0-49.9, adult (HCC) (Primary Dx); Mixed hyperlipidemia 03/28/2025 10:00 AM CDT Office Visit [facility] Primary Care at [address] [phone] Becka Dinh NP Morbid obesity with BMI of 40.0-44.9, adult (HCC) (Primary Dx); Type 2 diabetes mellitus with hyperlipidemia (HCC); Moderate episode of recurrent major depressive disorder (HCC); Hypertension associated with diabetes (HCC); Vitamin D deficiency; Mild intermittent asthma without complication 03/01/2025 Telephone [facility] Primary Care at [address] [phone] Becka Dinh NP Prior Auth (mounjaro) 02/28/2025 2:00 PM CDT Office Visit [facility] Primary Care at [address] [phone] Becka Dinh NP Morbid obesity [...] Chronic pain due to trauma 02/28/[address] 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 Gender Identity Not on file Sexual Orientation [...] NP LAB BLOOD ORDERABLES Final Re sult [facility] [address] Department [place] [address] * Differential, auto (03/28/2025 10:36 AM CDT) Neutrophil abs 2.91 1.50 - 6.50 K/cumm Imm gran abs 0.01 0.00 - 0.10 K/cumm [facility] Lymphocyte abs 1.62 0.80 - 3.30 K/cumm [facility] Monocyte abs 0.39 0.20 - 0.80 K/cumm [facility] Eosinophil abs 0.19 0.00 - 0.50 K/cumm [facility] Basophil abs 0.02 0.00 - 0.10 K/cumm [facility] Neutrophil pct 56.6 % [facility] Comment: Interpretive Data Percent cell count reference ranges are not reported, since discordance with absolute values may lead to misinterpretation of CBC data. Current Interpretive Data was last revised on 2018. Imm gran pct 0.2 % [facility] Comment: Interpretive Data Percent cell count reference ranges are not reported, since discordance with absolute values may lead to misinterpretation of CBC data. Current Interpretive Data was last revised on 2018. Lymphocyte pct 31.5 % [facility] Comment: Interpretive Data Percent cell count reference ranges are not reported, since discordance with absolute values may lead to misinterpretation of CBC data. Current Interpretive Data was last revised on 2018. Monocyte pct 7.6 % [facility] Comment: Interpretive Data Percent cell count reference ranges are not reported, since discordance with absolute values may lead to misinterpretation of CBC data. Current Interpretive Data was last revised on 2018. Eosinophil pct 3.7 % [facility] Comment: Interpretive Data Percent cell count reference ranges are not reported, since discordance with absolute values may lead to misinterpretation of CBC data. Current Interpretive Data was last revised on 2018. Basophil pct 0.4 % [facility] Comment: Interpretive Data Percent cell count reference ranges are not reported, since discordance with absolute values may lead to misinterpretation of CBC data. Current Interpretive Data was last revised on 2018. Blood 03/28/2025 10:3 6 AM CDT 03/28/2025 3:46 PM CDT Becka Dinh LAB BLOOD ORDERABLES Final Re sult Performing Organization Address [facility] de Phone Number [facility] [address] Department [email or web address] [place] [address] * (ABNORMAL) Iron profile w/ IBC (03/28/2025 10:36 AM CDT) Iron 60 50 - 150 mcg/dl TIBC 248(L) 250 - 400 mcg/dL [facility] Transferrin saturation 24 20 - 50 % [facility] Blood 03/28/2025 10:3 6 AM CDT 03/28/2025 3:46 PM CDT Becka Dinh CONCRETE POLISHER LAB BLOOD ORDERABLES Final Re sult Performing Organization Address [facility] Co de Phone Number [facility] [address] Department [email or web address] [address] * (ABNORMAL) CBC with auto differential (03/28/2025 10:36 AM CDT) WBC 5.14 3.80 - 9.90 K/cumm Hgb 14.0 13.0 - 17.5 g/dL [facility] Hct 46.2 38.9 - 50.3 % [facility] Plt 304 150 - 400 K/cumm [facility] MPV 9.6 9.1 - 12.3 fL [facility] RBC 6.11(H) 4.30 - 5.80 M/cumm [facility] MCV 75.6(L) 81.3 - 96.4 fL [facility] MCH 22.9(L) 27.1 - 33.3 pg [facility] MCHC 30.3(L) 32.3 - 35.7 g/dL [facility] RDW CV 13.9 11.1 - 14.9 % [facility] RDW SD 37.1 35.7 - 48.1 fL [facility] NRBC abs 0.00 0.00 - 0.01 K/cumm [facility] Blood 03/28/2025 10:3 6 AM CDT 03/28/2025 3:46 PM CDT Becka Fabrizio CONCRETE POLISHER LAB BLOOD ORDERABLES Final Re sult Performing Organization Address [facility] de Phone Number MARQUISE BAÑUELOS [address] [place] [address] * Hepatitis C antibody Blood [...] OR DERABLES Final Result Performing Organization Address [facility]/ZIP Co de Phone Number MARQUISE BAÑUELOS [address] Department [employer] [place], [place] [id number] * Albumin Creatinine Ratio, Urine (03/28/2025 10:36 AM CDT) Pathologist [facility] Albumin Ur 15.3 mg/L Comment: Interpretive Data No reference range established. Current interpretive data was last revised 2019. Creatinine Ur 175.9 mg/dL [facility] Comment: Interpretive Data No reference range established. Current interpretive data was last revised 2019. Albumin Creatinine Ratio, Ur 9 1 - 29 mg/g [facility]ISE Urine 03/28/2025 10:3 6 AM CDT 03/28/2025 3:46 PM CDT Becka Dinh CONCRETE POLISHER LAB URINE ORDERABLES Final Re sult Performing Organization Address [facility] Co de Phone Number JUSTINTRI [phone] [address] [facility] [email or web address] [address] * (ABNORMAL) Vitamin D 25 hydroxy (03/28/2025 10:36 AM CDT) Pathologist [facility] Vitamin D 25-OH 29(L) 30 - 80 ng/mL Blood 03/28/2025 10:3 6 AM CDT 03/28/2025 3:46 PM CDT Becka Dinh NP LAB BLOOD ORDERABLES Final Re sult Performing Organization Address [facility] Co de Phone Number MARQUISE [phone] [address] [facility] [email or web address] [address] * Hepatitis B Surface Antigen Blood (03/28/2025 10:36 AM CDT) Pathologist [facility] HepBsAg Nonreactive Nonreactive Blood 03/28/2025 10:3 6 AM CDT 03/28/2025 3:46 PM CDT Becka Dinh NP LAB MICROBIOLOGY - GENERAL OR DERABLES Final Result Performing Organization Address [facility] Co de Phone Number MARQUISE [phone] [address] [facility] [email or web address] [address] * (ABNORMAL) Hemoglobin A1c (03/28/2025 10:36 AM CDT) Hgb A1C 10.6(H) 4.0 - 5.6 % Estimated Average Glucose 258 mg/dL MARQUISE BAÑUELOS Comment: The ADA recommends reporting an estimated Average Glucose (eAG) with all Hemoglobin A1c results using the equation derived from a study of 507 normal and diabetic adults. Minority populations were underrepresented and children were not included. (Diabetes Care 31:7641-4001, 2008). The eAG is not equivalent to a fasting glucose. Blood 03/28/2025 10:3 6 AM CDT 03/28/2025 3:46 PM CDT Becka Dinh NP LAB BLOOD ORDERABLES Final Re sult MARQUISE BAÑUELOS [address] [address] Department of Laboratories [place] [phone] * (ABNORMAL) Lipid panel (03/28/2025 10:36 AM [...] LAB BLOOD ORDERABLES Final Re sult [facility] [address] Department [place] [address] * (ABNORMAL) Comprehensive metabolic panel (03/28/2025 10:36 [...] 03/28/2025 3:46 PM CDT us Becka Dinh CONCRETE POLISHER LAB BLOOD ORDERABLES Final Re sult MARQUISE [address] [address] Department [place] [address] * (ABNORMAL) POCT hemoglobin A1c (02/28/2025 3:13 PM CDT) Hemoglobin A1C, POC 10.7 4.0 - 5.6 % Blood 02/28/2025 3:13 PM CDT Becka Dinh CONCRETE POLISHER POINT OF CARE TEST ORDERABLES Final Result from Last 3 Months Insurance * Guarantor: [employer] Account Type Relation to Patient Date of Phone Billing Address Personal/Family Self [address] [place] [address] [facility] CHOICE PLUS [facility] HMO/PPO Address: [facility] [address] [facility] HMO/PPO Address: [facility] [address] [place] [address] Care Teams Agricultural Economics Professor Relationship Specialty Start Date End Date Becka Dinh NP [address] [facility] [address] [place] [address] PCP - General Internal Medicine 02/28/25 Miscellaneous, Not In File 03/23/17
--- OUTSIDE RECORDS SUMMARY | 2025-05-02 17:42 | XMS_ITS | Referral Summary ---
Author Organization [facility] Address [address] [place] [id number] Care Team Providers Care Staff Physician Name Role Phone Miscellaneous, Not In File Unavailable Unava ilable Becka Dinh NP Primary Care Provider [phone] Encounters Date Type Department Care Team Description 04/27/2025 Nurse Triage [facility] Primary Care at [address] [phone] Bessie Guaman RN 04/07/2025 Telephone [facility] Primary Care at [address] [phone] Becka Dinh NP Med Refill 04/05/2025 Telephone [facility] Primary Care at [address] [phone] Becka Dinh NP PA for Ozempic 03/31/2025 Results Follow-Up [facility] Primary Care at [address] [phone] Becka Dinh NP Albumin Creatinine Ratio, Urine, Lipid panel, Comprehensive metabolic panel, Additional followed-up results: 8 03/28/2025 10:36 AM CDT - 03/28/2025 11:59 PM CDT Hospital Encounter [facility] [address] [place] [address] Type 2 diabetes mellitus with hyperlipidemia (HCC); Mixed hyperlipidemia; Hypertension associated with diabetes (HCC); Vitamin D deficiency; Need for hepatitis C screening test; Need for hepatitis B screening test; History of anemia Discharge Disposition: Discharge to home or self care 03/28/2025 10:30 AM CDT Lab [facility] Outpatient Lab at [address] [phone] Morbid obesity with BMI of 45.0-49.9, adult (HCC) (Primary Dx); Mixed hyperlipidemia 03/28/2025 10:00 AM CDT Office Visit [facility] Primary Care at [address] [phone] Becka Dinh NP Morbid obesity with BMI of 40.0-44.9, adult (HCC) (Primary Dx); Type 2 diabetes mellitus with hyperlipidemia (HCC); Moderate episode of recurrent major depressive disorder (HCC); Hypertension associated with diabetes (HCC); Vitamin D deficiency; Mild intermittent asthma without complication 03/01/2025 Telephone [facility] Primary Care at [address] [phone] Becka Dinh NP Prior Auth (mounjaro) 02/28/2025 Telephone [facility] Primary Care at [address] [phone] Becka Dinh NP Med Refill 02/28/2025 2:00 PM CDT Office Visit [facility] Primary Care at [address] [phone] Becka Dinh NP Morbid obesity [...] on file 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 Gender Identity Not on file Sexual Orientation [...] CDT 03/28/2025 3:53 PM CDT Becka Dinh PROMOTIONAL MARKETING AGENT LAB BLOOD ORDERABLES Final Re sult [facility] [address] [address] Department of Laboratories [place] [phone] * Differential, auto (03/28/2025 10:36 AM CDT) Neutrophil abs 2.91 1.50 - 6.50 K/cumm Imm gran abs 0.01 0.00 - 0.10 K/cumm [facility] Lymphocyte abs 1.62 0.80 - 3.30 K/cumm [facility] Monocyte abs 0.39 0.20 - 0.80 K/cumm [facility] Eosinophil abs 0.19 0.00 - 0.50 K/cumm [facility] Basophil abs 0.02 0.00 - 0.10 K/cumm [facility] Neutrophil pct 56.6 % MARQUISE Comment: [...] CDT 03/28/2025 3:46 PM CDT Becka Dinh PROMOTIONAL MARKETING AGENT LAB BLOOD ORDERABLES Final Re sult Performing Organization Address [facility] Co de Phone Number JUSTINTRI BAÑUELOS [address] [address] [place] [address] * (ABNORMAL) Iron profile w/ IBC (03/28/2025 10:36 AM CDT) Iron 60 50 - 150 mcg/dl TIBC 248(L) 250 - 400 mcg/dL [facility] Transferrin saturation 24 20 - 50 % [facility] Blood 03/28/2025 10:3 6 AM CDT 03/28/2025 3:46 PM CDT Becka Dinh PROMOTIONAL MARKETING AGENT LAB BLOOD ORDERABLES Final Re sult Performing Organization Address City/[facility]/ZIP Co de Phone Number MARQUISE [address] [address] [place] [address] * (ABNORMAL) CBC with auto differential (03/28/2025 10:36 AM CDT) [facility] WBC 5.14 3.80 - 9.90 K/cumm Hgb 14.0 13.0 - 17.5 g/dL [facility] Hct 46.2 38.9 - 50.3 % [facility] Plt 304 150 - 400 K/cumm [facility] MPV 9.6 9.1 - 12.3 fL [facility] RBC 6.11(H) 4.30 - 5.80 M/cumm [facility] MCV 75.6(L) 81.3 - 96.4 fL [facility] MCH 22.9(L) 27.1 - 33.3 pg [facility] MCHC 30.3(L) 32.3 - 35.7 g/dL [facility] RDW CV 13.9 11.1 - 14.9 % [facility] RDW SD 37.1 35.7 - 48.1 fL [facility] NRBC abs 0.00 0.00 - 0.01 K/cumm [facility] Blood 03/28/2025 10:3 6 AM CDT 03/28/2025 3:46 PM CDT Becka Dinh PROMOTIONAL MARKETING AGENT LAB BLOOD ORDERABLES Final Re sult [facility] [address] [address] Department [place] [address] * Hepatitis C antibody Blood (03/28/2025 10:36 AM CDT) [facility] Hep C Ab Nonreactive Nonreactive Comment: Interpretive [...] OR DERABLES Final Result Performing Organization Address [facility] Co de Phone Number MARQUISE BAÑUELOS [address] [address] [facility] [place] [address] * Albumin Creatinine Ratio, Urine (03/28/2025 10:36 AM CDT) Pathologist [facility] Albumin Ur 15.3 mg/L Comment: Interpretive Data [...] ORDERABLES Final Re sult Performing Organization Address [facility] Co de Phone Number MARQUISE EDDA [address] [address] [facility] [place] [address] * (ABNORMAL) Vitamin D 25 hydroxy (03/28/2025 10:36 AM CDT) Pathologist [facility] Vitamin D 25-OH 29(L) 30 - 80 ng/mL Blood 03/28/2025 10:3 6 AM CDT 03/28/2025 3:46 PM CDT Becka Dinh NP LAB BLOOD ORDERABLES Final Re sult Performing Organization Address [facility] Co de Phone Number JUSTINTRI BAÑUELOS [address] [address] [facility] [place] [address] * Hepatitis B Surface Antigen Blood (03/28/2025 10:36 AM CDT) Pathologist [facility] HepBsAg Nonreactive Nonreactive Blood 03/28/2025 10:3 6 AM CDT 03/28/2025 3:46 PM CDT Becka Dinh NP LAB MICROBIOLOGY - GENERAL OR DERABLES Final Result Performing Organization Address [facility] de Phone Number MARQUISE BAÑUELOS [address] [facility] [place] [address] * (ABNORMAL) Hemoglobin A1c (03/28/2025 10:36 AM CDT) Hgb A1C 10.6(H) 4.0 - 5.6 % Estimated Average Glucose 258 mg/dL MARQUISE BAÑUELOS Comment: The ADA recommends reporting an estimated Average Glucose (eAG) with all Hemoglobin A1c results using the equation derived from a study of 507 normal and diabetic adults. Minority populations were underrepresented and children were not included. (Diabetes Care 31:5973-0280, 2008). The eAG is not equivalent to a fasting glucose. Blood 03/28/2025 10:3 6 AM CDT 03/28/2025 3:46 PM CDT Becka Dinh NP LAB BLOOD ORDERABLES Final Re sult Performing Organization Address [facility] de Phone Number MARQUISE BAÑUELOS [address] [facility] [place] [address] * (ABNORMAL) Lipid panel (03/28/2025 10:36 AM [...] revised on 2024. Non-HDL Cholesterol 192 mg/dL [facility] Comment: Interpretive Data Ages < or [...] last revised on 2018. Chol/HDL ratio 6 [facility] Blood 03/28/2025 10:3 6 AM CDT 03/28/2025 3:46 PM CDT Becka Dinh NP LAB BLOOD ORDERABLES Final Re sult [facility] [address] [address] Department [place] [address] * (ABNORMAL) Comprehensive metabolic panel (03/28/2025 10:36 AM CDT) Sodium 138 135 - 145 mmol/L Potassium, pl 4.6 3.3 - 4.9 mmol/L [facility] Chloride 102 97 - 110 mmol/L [facility] CO2 26 22 - 32 mmol/L [facility] Anion gap 10 2 - 15 mmol/L [facility] BUN 18 6 - 25 mg/dL [facility] Creatinine 0.77(L) 0.80 - 1.30 mg/dL [facility] Glucose 157 70 - 199 mg/dL [facility] Comment: Interpretive Data Fasting glucose >/= [...] CDT 03/28/2025 3:46 PM CDT Becka Dinh PROMOTIONAL MARKETING AGENT LAB BLOOD ORDERABLES Final Re sult [facility] [address] [address] Department [place] [address] * (ABNORMAL) POCT hemoglobin A1c (02/28/2025 3:13 PM CDT) Hemoglobin A1C, POC 10.7 4.0 - 5.6 % Blood 02/28/2025 3:13 PM CDT Becka Dinh NP POINT OF CARE TEST ORDERABLES Final Result from Last 3 Months Insurance * Guarantor: [employer] Account Type Relation to Patient Date of Phone Billing Address Personal/Family Self 1990 [address] [place] [address] [facility] CHOICE PLUS [facility] Care Teams Staff Physician Relationship Specialty Start Date End Date Becka Dinh NP [address] [address] PCP - General Internal Medicine 02/28/25 Miscellaneous, Not In File 03/23/17
[2025-05-02 17:59] VITALS: BP 144/93; PULSE 97; RESP 19; O2SAT 99
== END 2025-05-02 18:00 | disposition home or self-care (01) ==
LOC: ANHED 17:41
PROVIDERS: Emergency Provider Physician Assistant; PCP Nurse Practitioner
DX: S76.912A Strain of unspecified muscles, fascia and tendons at thigh level, left thigh, initial encounter (principal); S76.012A Strain of muscle, fascia and tendon of left hip, initial encounter; X50.0XXA Overexertion from strenuous movement or load, initial encounter
CPT/HCPCS: 93970; 99284; A9270